=== PATIENT | male | born 1955 | race Caucasian/White ===

== ENCOUNTER 2018-04-01 16:29 | Emergency (ER) | payer BC, MEDICARE ==
[~2018-04-01 16:29] MED LIST: ISOVUE-370 76%-LOCM 1 ML ONE
[2018-04-01 18:48] LABS: #Basophils 0.1 thou/uL (0.0-0.2); #Eosinphils 0.1 thou/uL (0.0-0.7); #Lymphocytes 2.6 thou/uL (1.20-3.40); #Monocytes 0.7 thou/uL (0.11-0.59); %Basophils 0.6 % (0.0-1.0); %Eosinophils 0.8 % (0.0-10.0); %Lymphocytes 20.9 % (21.0-51.0); %Monocytes 5.9 % (0.0-10.0); %Neutrophils 71.9 % (42.0-75.0); Hemoglobin 11.5 g/dL (14.0-18.0); Mean Corpuscular Hemoglobin 20.4 pg (27.0-31.0); Mean Corpuscular Volume 67.9 fL (78.0-98.0); Mean Platelet Volume 10.1 fL (7.4-10.4); Platelet Count 422 thou/uL (130-400); RBC Distribution Width 17.3 % (11.5-14.5); Red Blood Cell (RBC) Count 5.66 mill/uL (4.70-6.10); White Blood Cell (WBC) Count 12.5 thou/uL (4.8-10.8)
[2018-04-01 19:04] LABS: ALT (SGPT) 27 U/L (8-55); AST (SGOT) 27 U/L (5-34); Albumin 3.7 g/dL (3.4-4.8); Alkaline Phosphatase 230 U/L (40-150); Anion Gap 14 mmol/L (10-20); BUN (Urea Nitrogen) 18 mg/dL (8.4-25.7); Bilirubin, Total 0.6 mg/dL (0.2-1.2); CK (CPK) 10 U/L (30-200); Calc. Creatinine Clearance 0 mL/min (70-130); Calcium 11.3 mg/dL (7.8-10.44); Carbon Dioxide 27 mmol/L (23-31); Chloride 99 mmol/L (98-107); Estimated GFR-MDRD 56; Globulin 4.4 g/dL (2.4-3.5); Glucose 83 mg/dL (80-115); Potassium 4.2 mmol/L (3.5-5.1); Protein, Total 8.1 g/dL (5.8-8.1); Sodium 136 mmol/L (136-145)
[2018-04-01 19:05] LABS: Anisocytosis SLIGHT = 6-15 cells (100X) (0-5/hpf); Hypochromia SLIGHT = 6-15 cells (100X) (0-5/hpf); Large Platelets SLIGHT; MDiff Complete? YES; Microcytosis SLIGHT = 6-15 cells (100X) (0-5/hpf); Ovalocytes SLIGHT = 2-5 cells (100X) (0-1/hpf); Platelet Morphology Comment Appears Increased; Polychromasia SLIGHT = 2-3 cells (100X) (0-2/hpf)
--- NOTE | 2018-04-01 19:09 | RAD ---
RADIOGRAPH CHEST 2 VIEWS: Date: 04/01/18 Time: 5:29 p.m. HISTORY: 62-year-old male with chest pain and dyspnea. COMPARISON: 07/21/12. FINDINGS: There is a new finding of large number of noncalcified bilateral pulmonary nodules of varying sizes t hroughout the upper, mid, and especially lower, lung zones. The cardiomediastinal silhouette is familia l. No consolidation, pulmonary edema, pleural effusion, or pneumothorax. No mediastinal widening. IMPRESSION: Large number of bilateral pulmonary nodules is evidence for pulmonary metastatic disease. Recommend f urther evaluation with chest CT. JESUS [] POS: [facility]
--- NOTE | 2018-04-01 20:14 | CT ---
CT ARTERIOGRAM CHEST WITH IV CONTRAST AND 3D MIP IMAGIN04/01/18 HISTORY: Chest pain. FINDINGS: There is good contrast opacification of the pulmonary arteries and thoracic aorta with bovine origin of the great vessels at the aortic arch. There are innumerable soft tissue density masses throughout each lung. The largest is at the right lung base measuring up to 3.3 cm greatest diameter. Minimal ri ght pleural fluid. No mediastinal adenopathy is apparent. The most inferior image shows prominence of the left kidney gleason ggestive of a mass. IMPRESSION: No CT evidence of pulmonary embolus. Multiple bilateral lung bases. Likely related to metastatic disease of left kidney cancer. CT abdomen is pending. POS: [facility]
--- NOTE | 2018-04-01 20:40 | CT ---
CT ABDOMEN WITH CONTRAST CT PELVIS WITH CONTRAST: DATE: 04/01/18 at 7:38 p.m. HISTORY: 62-year-old male with generalized abdominal pain and weight loss. Rule out metastatic disease. Dr. De La Torre notified Dr. Mary Deal of the Emergency Department of the findings by telephone at 800 p.m. on 04/01/18. COMPARISON: None. TECHNIQUE: IV injection of iodinated contrast media: Isovue Oral contrast media: Administered FINDINGS: There is a large number of noncalcified pulmonary nodules in the bilateral lower lobes, right middle lobe, and lingula. For example, one of the larger ones is a 3 x 2.2 x 1.7 cm pulmonary nodule at the anterobasilar segment of left lower lobe. There is a small right pleural effusion. No left sided pleu ral effusion. There is a large, approximately 10.5 x 7.5 x 10 cm neoplastic tumor mass with heterogen eous enhancement protruding inferiorly from the lower pole of the left kidney. There is edema in the left perirenal space surrounding the large tumor. The tumor engulfs the entire lower pole and the mid pole. Only the upper pole is spared. No hydronephrosis. Right kidney, adrenals, pancreas, and urinar y bladder, are normal. No colonic diverticulitis. No small bowel dilation. Several mildly enlarged u pper retroperitoneal bilateral para-aortic lymph nodes. One of the larger ones is an approximately 1 x 1 x 2 cm left para-aortic lymph node slightly inferior to the left renal artery and left renal vein . Diffusely low hepatic attenuation consistent with mildly fatty liver. Splenomegaly. No pancreatitis or pancreatic mass. No ascites or pneumoperitoneum. No osteolytic skeletal lesions identified. There is a small filling defect at the lower first branching point of the distal portion of the renal vein , which could represent tumor thrombus. The branch of the left renal vein that extends into the left renal upper pole is clear, and the rest of the left renal vein is clear. IMPRESSION: 1. Large, 10.5 cm left renal cell carcinoma. 2. Extensive pulmonary metastatic disease. 3. Questionable tumor thrombus invasion into major branch of left renal vein. 4. Mild upper retroperitoneal lymphadenopathy. It is uncertain whether or not this is metastatic lymphadenopathy. 5. Splenomegaly. 6. Hepatic steatosis. 7. Small right pleural effusion. Code CR JN R
[2018-04-01 21:02] LABS: Troponin I Less than 0.010 ng/mL (< 0.028)
== END 2018-04-01 21:22 | disposition home or self-care (01) ==
LOC: ERS 16:29
DX: C64.2 Malignant neoplasm of left kidney, except renal pelvis (principal); R91.1 Solitary pulmonary nodule; J45.909 Unspecified asthma, uncomplicated; E11.9 Type 2 diabetes mellitus without complications; F32.9 Major depressive disorder, single episode, unspecified
CPT/HCPCS: 36415; 71046; 71275; 74177; 80053; 82550; 84484; 85025; 93005; Q9966

== ENCOUNTER 2018-04-10 08:21 | Outpatient (CLI) | payer BC, MEDICARE ==
--- NOTE | 2018-04-10 10:46 | MRI ---
BRAIN MRI WITH AND WITHOUT CONTRAST: DATE: 04/10/2018. COMPARISON: None. HISTORY: Renal cell carcinoma, staging procedure, assess for metastatic disease. TECHNIQUE: Multiplanar, multisequence MR imaging of the brain obtained with and without contrast. FINDINGS: The diffusion weighted imaging demonstrates no evidence for acute infarction. Axial gradient echo imaging demonstrates no evidence for intracranial hemorrhage. Images paranasal sinuses and mastoid air cells appear grossly unremarkable. Arterial flow voids at the axial level of the skull base appear unremarkable. FLAIR imaging demonstrates numerous subcentimeter foci of increased signal intensity within the deep, subcortical, and periventricular white matter, suggesting small-vessel disease. Postcontrast imaging demonstrates no abnormal enhancement within the brain parenchyma. The regional bone marrow signal intensity appears within normal limits. IMPRESSION: No MR evidence of metastatic disease. POS: [facility]
--- NOTE | 2018-04-10 15:17 | NM ---
WHOLE BODY BONE SCAN: 04/10/2018 HISTORY: Renal lesion on the left, concerning for renal cell carcinoma. TECHNIQUE: Anterior and posterior whole body imaging is obtained, following the intravenous administration of 33 millicuries of technetium 99m, labeled MDP. FINDINGS: There is physiologic activity overlying the kidneys and urinary bladder. Of note, the left kidney ap pears somewhat amorphous and enlarged, consistent with the known left renal mass lesion. There is degenerative activity within the shoulders. There is evidence of a left knee arthroplasty. There is degenerative change overlying the ankle/foot, posteriorly, on the left. No scintigraphic e vidence for osseous metastatic disease. IMPRESSION: No scintigraphic evidence of osseous metastatic disease. POS: [facility]
[2018-04-10] MEDS ORDERED: Gadobenate Dimeglumine 529 MG/1 ML (20ML VIAL) ONE (17:06)
== END 2018-04-10 08:22 | disposition home or self-care (01) ==
LOC: MRI 08:21
PROVIDERS: ATTEND Internal Medicine Medical Oncology
DX: C64.2 Malignant neoplasm of left kidney, except renal pelvis (principal); R07.81 Pleurodynia; M54.9 Dorsalgia, unspecified
CPT/HCPCS: 70553; 78306; A9503; A9577

== ENCOUNTER 2018-04-20 11:24 | Outpatient (CLI) | payer BC, MEDICARE ==
--- NOTE | 2018-04-20 19:10 | PET ---
PET CT: HISTORY: 62-year-old male with left kidney cancer and elevated alkaline phosphatase. Exam requested for akira trinh TECHNIQUE: PET scanning with CT attenuation correction was performed from the base of the brain through the prox imal thighs following the intravenous administration of 11.3 mCi F18-FDG in the left antecubital mateo a. COMPARISON: None. CORRELATION: CT abdomen and pelvis, and CT pulmonary angiogram, of 04/01/18. FINDINGS: Numerous hypermetabolic lung nodules are seen bilaterally with a maximum SUV of 14.3 in the right upp er lobe. A hypermetabolic right pleural nodule is seen within a moderate right pleural effusion with a SUV of 9.6. A hypermetabolic right pericardiophrenic lymph node is noted with a SUV of 10. The left renal mass is hypermetabolic with a SUV of 8. No mediastinal, hilar, axillary, cervical, or abdominopelvic lymph nodes with abnormal FDG localizati on seen. No hypermetabolic liver, adrenal, or skeletal lesions are identified. There is physiologic activity in the GI and tracts. The CT scan used for attenuation correction demonstrates moderate size right pleural effusion. No per icardial effusion, left pleural effusion, or ascites seen. IMPRESSION: Left renal malignancy with multiple bilateral lung metastases, right pleural and right pericardiophre shital lymph emigdio metastases. POS: [facility]
== END 2018-04-20 11:25 | disposition home or self-care (01) ==
LOC: PET 11:24
PROVIDERS: ATTEND Internal Medicine Medical Oncology
DX: C64.2 Malignant neoplasm of left kidney, except renal pelvis (principal); C78.02 Secondary malignant neoplasm of left lung; C78.01 Secondary malignant neoplasm of right lung; C78.2 Secondary malignant neoplasm of pleura; C77.2 Secondary and unspecified malignant neoplasm of intra-abdominal lymph nodes
CPT/HCPCS: 78815; A9552

== ENCOUNTER 2018-04-21 09:13 | Day surgery (SDC) | payer BC, MEDICARE ==
[2018-04-20 16:57] VITALS: BMI 31.2
[2018-04-21 09:35] LABS: INR-International Normal Ratio 1.1; PTT 39.1 SEC (22.9-36.1); Prothrombin Time 14.4 SEC (12.0-14.7)
[2018-04-21 10:32] VITALS: BP 139/71; TEMP 98.2
[2018-04-21] MEDS ORDERED: Fentanyl 100 MCG/2 ML VIAL ONE (10:57)
[2018-04-21] MEDS ORDERED: Sodium Bicarbonate 2.5 MEQ/5 ML VIAL ONE (10:57)
[2018-04-21] MEDS ORDERED: Midazolam HCl 2 mg/2 ml Vial ONE (10:57)
--- NOTE | 2018-04-21 13:36 | CT ---
CT GUIDED PERCUTANEOUS BIOPSY OF LEFT RENAL MASS: DATE: 04/21/2018. HISTORY: Patient with renal mass and bilateral pulmonary nodules. Request is made for biopsy of the renal mas s prior to immunotherapy. TECHNIQUE: The procedure including the risks and complications were explained to the patient and the patient's w janet, and informed consent was obtained. The patient was placed on the CT scan table in the prone pos ition. Limited noncontrasted CT scan was obtained through the level of the kidneys with grid localiz er in place. An area overlying the left renal mass was marked, and the area was meticulously prepped and draped in the usual sterile fashion. The skin and subcutaneous tissues were infiltrated with buffered 1% Lidocaine for local anesthesia. A small skin incision was made. A 17-gauge guide needle was advanced followed by axial noncontrasted CT images. This was repeated un til the needle was placed in the most peripheral aspect lower portion of the mass. Final position wa s again confirmed with 3 axial noncontrasted images. Utilizing coaxial technique, a total of two 18-gauge core needle biopsy specimens were obtained. Becky gnostic tissue was noted on preliminary pathology report. The inner stylette was replaced, and the n eedle was removed. Hemostasis was achieved with direct pressure. Followup noncontrasted CT images d emonstrate no fluid adjacent to the site of biopsy and no hematoma is appreciated. The patient tolerated the procedure well and without immediate complication. The patient's vital sig ns remained stable during the procedure as well as postprocedure. The patient was transferred to the radiology nurse's holding area for further monitoring prior to discharge. IMPRESSION: Technically successful CT guided percutaneous biopsy of a large left renal mass. POS: [facility]
== END 2018-04-21 13:29 | disposition home or self-care (01) ==
LOC: RAD 09:13
PROVIDERS: ATTEND Radiology Vascular & Interventional Radiology
PROC: BT22ZZZ Computerized Tomography (CT Scan) of Left Kidney (ICD-10-PCS; principal; 2018-04-21)
PROC: 0TB13ZX Excision of Left Kidney, Percutaneous Approach, Diagnostic (ICD-10-PCS; principal; 2018-04-21)
DX: C64.2 Malignant neoplasm of left kidney, except renal pelvis (principal); N28.0 Ischemia and infarction of kidney; N05.9 Unspecified nephritic syndrome with unspecified morphologic changes; I10 Essential (primary) hypertension; E11.9 Type 2 diabetes mellitus without complications; E03.9 Hypothyroidism, unspecified; E78.5 Hyperlipidemia, unspecified; K21.9 Gastro-esophageal reflux disease without esophagitis; J45.909 Unspecified asthma, uncomplicated; Z96.652 Presence of left artificial knee joint; Z88.5 Allergy status to narcotic agent; Z88.0 Allergy status to penicillin; Z88.8 Allergy status to other drugs, medicaments and biological substances; Z79.4 Long term (current) use of insulin; Z79.899 Other long term (current) drug therapy; Z98.890 Other specified postprocedural states
CPT/HCPCS: 50200; 77012; 85610; 85730; 88173; 88305; 88313; 88333; 88334; J2250; J3010